=== PATIENT | male | born 2000 | race African-American/Black ===

== ENCOUNTER 2020-11-22 10:59 | Emergency (ER) | payer OTHER ==
[~2020-11-22] VITALS: Ht 162.6 cm; Wt 66.6 kg
[2020-11-22 12:31] LABS: HEMATOCRIT 42.8 % (42.0-52.0); HEMOGLOBIN 14.5 g/dl (13.5-17.5); MEAN CORPUSCULAR HEMOGLOBIN 32.7 pg (27.0-33.0); MEAN CORPUSCULAR HGB CONC 33.9 g/dl (32.0-36.5); MEAN CORPUSCULAR VOLUME 96.4 fl (80.0-96.0); PLATELET COUNT, AUTOMATED 153 10^3/uL (150-450); RED BLOOD COUNT 4.44 10^6/uL (4.30-6.10)
[2020-11-22] MEDS ORDERED: ONDA4TAB6 PO (12:47)
[2020-11-22 13:16] VITALS: BP 122/78
== END 2020-11-22 13:17 | disposition home or self-care (01) ==
LOC: M ED 10:59
DX: R11.2 Nausea with vomiting, unspecified (principal); R19.7 Diarrhea, unspecified; U07.1 COVID-19

== ENCOUNTER 2021-01-01 23:51 | Emergency (ER) | payer OTHER ==
[~2021-01-01] VITALS: Ht 162.6 cm; Wt 63.6 kg
[~2021-01-01 23:51] MED LIST: ONDA4TAB6 PO
[2021-01-02] MEDS ORDERED: LORazepam 2 MG/ML VIAL IV STA (00:11)
[2021-01-02] MEDS ORDERED: KETOROLAC 30 MG/ML 1ML VIAL IV ONE (00:15)
[2021-01-02 00:27] LABS: BASO % 0.5 % (0.0-1.0); EOS % 0.5 % (0.0-3.0); HEMATOCRIT 45.1 % (42.0-52.0); HEMOGLOBIN 15.4 g/dl (13.5-17.5); LYMPH # 1.5 10^3/uL (1.5-5.0); LYMPH % 33.1 % (24.0-44.0); MEAN CORPUSCULAR HEMOGLOBIN 31.6 pg (27.0-33.0); MEAN CORPUSCULAR HGB CONC 34.1 g/dl (32.0-36.5); MEAN CORPUSCULAR VOLUME 92.4 fl (80.0-96.0); MONO # 0.2 10^3/uL (0.0-0.8); MONO % 5.5 % (2.0-8.0); NEUTROPHILS # 2.6 10^3/uL (1.5-8.5); NEUTROPHILS % 60.2 % (36.0-66.0); PLATELET COUNT, AUTOMATED 238 10^3/uL (150-450); RED BLOOD COUNT 4.88 10^6/uL (4.30-6.10); WHITE BLOOD COUNT 4.4 10^3/uL (4.0-10.0)
[2021-01-02 00:58] LABS: ALBUMIN 4.5 GM/DL (3.2-5.2); ALT/SGPT 20 U/L (12-78); BILIRUBIN,DIRECT 0.2 MG/DL (0.0-0.2); BILIRUBIN,TOTAL 0.5 MG/DL (0.2-1.0); BLOOD UREA NITROGEN 11 MG/DL (7-18); CALCIUM LEVEL 10.3 MG/DL (8.5-10.1); CARBON DIOXIDE LEVEL 29 MEQ/L (21-32); CHLORIDE LEVEL 103 MEQ/L (98-107); CREATININE FOR GFR 1.09 MG/DL (0.70-1.30); GLOMERULAR FILTRATION RATE > 60.0 (>60); GLUCOSE, FASTING 77 MG/DL (70-100); LIPASE 53 U/L (73-393); POTASSIUM SERUM 3.8 MEQ/L (3.5-5.1); SODIUM LEVEL 141 MEQ/L (136-145); TOTAL PROTEIN 7.6 GM/DL (6.4-8.2)
--- NOTE | 2021-01-02 03:37 | REPVR ---
PROCEDURE INFORMATION: Exam: XR Chest Exam date and time: 01/02/21 (1:56am) Age: 20 years old Clinical indication: Chest pain TECHNIQUE: Imaging protocol: Portable CXR Views: 1 view COMPARISON: No relevant prior studies available FINDINGS: Lungs: Unremarkable. No consolidation. Pleural spaces: Unremarkable. No pleural effusions. No pneumothorax. Heart/Mediastinum: Unremarkable. No cardiomegaly. Bones/joints: Unremarkable. IMPRESSION: No acute findings. Clear lung gaona. Electronically signed by: Sierra Michelle On 01/02/2021 03:36:58 AM
[2021-01-02 03:45] VITALS: BP 105/58
--- NOTE | 2021-01-02 06:24 | ECGEPIP ---
[facility] - ED Test Date: 2021-01-02 Pat Name: MITCHELL CABRERA Department: Room: - Gender: Male Private Secretary: Villa LARIOS : 2000 Requested By: Ambrose Wells Order Number: [id number] Reading MD: Mikayla Cagle Measurements Intervals [place] Rate: 85 P: 51 OR: 142 QRS: 44 QRSD: 78 T: 33 QT: 338 QTc: 402 Interpretive Statements Normal sinus rhythm Nonspecific ST T wave changes No prior ECG for comparison Electronically Signed on 01-02-2021 6:24:05 EDT by Mikayla Cagle
== END 2021-01-02 04:11 | disposition home or self-care (01) ==
LOC: M ED 23:51
DX: R07.2 Precordial pain (principal); R07.89 Other chest pain; Z86.16 Personal history of COVID-19; F17.200 Nicotine dependence, unspecified, uncomplicated
CPT/HCPCS: 71045; 80048; 80076; 83690; 84484; 85025; 85379; 93005; 93041; 94760; 96374; 96375; 99285; J1885; J2060

== ENCOUNTER 2021-01-07 10:34 | Emergency (ER) | payer OTHER ==
[~2021-01-07] VITALS: Ht 162.6 cm; Wt 63.6 kg
[2021-01-07] MEDS ORDERED: ISOVUE-370 76% 100ML VIAL As Ordered ONE (10:51)
--- NOTE | 2021-01-07 11:11 | REP ---
INDICATION: CP COMPARISON: None. TECHNIQUE: Axial contrast enhanced images from the thoracic inlet to the upper abdomen using pulmonary embolus technique with multiplanar re-formations. 75 ml Isovue 370 intravenous contrast material administered without complication. This CT examination was performed using the following dose reduction techniques: Automated exposure control, adjustment of mA and/or kv according to the patient's size, and use of iterative reconstruction technique. FINDINGS: Satisfactory enhancement of the pulmonary vasculature is achieved and no filling defects are identified to suggest pulmonary embolus. Further evaluation of the mediastinum demonstrates normal thoracic aorta, heart and pericardium. The bilateral lung gaona are well aerated and clear without consolidation pleural effusion or pneumothorax. Tracheobronchial tree is patent. No nodule or mass lesion is identified. No adenopathy noted. Surrounding musculoskeletal structures intact IMPRESSION: No evidence for pulmonary embolus. No acute mediastinal or pleural parenchymal process. <Electronically signed by Ladarius Turcios > 01/07/21 [id number]
[2021-01-07 11:49] LABS: AMPHETAMINES LEVEL URINE NEGATIVE (NEGATIVE); BARBITURATES URINE NEGATIVE (NEGATIVE); BENZODIAZEPINES URINE NEGATIVE (NEGATIVE); CANNABINOIDS URINE POSITIVE (NEGATIVE); COCAINE METABOLITE URINE NEGATIVE (NEGATIVE); METHADONE URINE NEGATIVE (NEGATIVE); OPIATES URINE NEGATIVE (NEGATIVE); PHENCYCLIDINE URINE NEGATIVE (NEGATIVE)
[2021-01-07 12:48] VITALS: BP 114/68
--- NOTE | 2021-01-07 18:52 | ECGEPIP ---
[facility] - ED Test Date: 2021-01-07 Pat Name: MITCHELL CABRERA Department: Room: - Gender: Male [employer]: JORDON : 2000 Requested By: Shalonda Leggett Order Number: [id number] Reading MD: Tom Cooper Measurements Intervals [place] Rate: 61 P: 63 MN: 148 QRS: 57 QRSD: 82 T: 34 QT: 416 QTc: 418 Interpretive Statements Normal sinus rhythm NSTTW ABNORMALITY(S) SIMILAR TO 01/02/21 Electronically Signed on 01-07-2021 18:51:44 EDT by Tom Cooper
== END 2021-01-07 12:50 | disposition home or self-care (01) ==
LOC: M ED 10:34
DX: R07.9 Chest pain, unspecified (principal)
CPT/HCPCS: 36415; 71275; 80307; 84484; 93005; 99284; Q9967